=== PATIENT | male | born 1985 | race Two or more races ===

== ENCOUNTER → 2018-03-07 | Outpatient (CLI) | payer OTHER ==
--- NOTE | 2018-03-07 12:42 | KCIC ---
EXAM: Chest, single view. HISTORY: Positive tuberculin reactor. COMPARISON: None. FINDINGS: A frontal view of the chest is obtained. There is no infiltrate, pleural effusion or pneumothorax. The heart is normal in size. IMPRESSION: No acute pulmonary finding or radiograph evidence of pulmonary tuberculosis. Electronically signed by: Marisela Marr MD (03/07/2018 12:39 PM) [facility]
== END | disposition home or self-care (01) ==
LOC: KCIC 10:27
PROVIDERS: ATTEND Family Medicine
DX: R76.11 Nonspecific reaction to tuberculin skin test without active tuberculosis (principal)
CPT/HCPCS: 71045